=== PATIENT | male | born 1960 | race American Indian/Alaskan Native ===

== ENCOUNTER 2018-01-05 06:02 | Emergency (ER) | payer BC ==
[2018-01-05 07:49] LABS: Basophils # (Auto) 0.1 K/mm3 (0.0-0.1); Basophils % (Auto) 0.5 % (0.0-1.8); Eosinophils % (Auto) 0.4 % (0.0-4.3); Hematocrit 41.3 % (35.5-45.6); Hemoglobin 13.5 gm/dl (11.8-15.2); Lymphocytes # (Auto) 1.6 K/mm3 (1.2-5.4); Lymphocytes % (Auto) 15.1 % (13.4-35.0); Mean Corpuscular HGB Conc 33 % (32-34); Mean Corpuscular Hemoglobin 29 pg (28-32); Mean Corpuscular Volume 88 fl (84-94); Monocytes # (Auto) 0.5 K/mm3 (0.0-0.8); Monocytes % (Auto) 4.9 % (0.0-7.3); Platelet Count 210 K/mm3 (140-440); Red Blood Count 4.69 M/mm3 (3.65-5.03)
--- NOTE | 2018-01-05 08:00 | XRay Report ---
FINAL REPORT EXAM: XR CHEST ROUTINE 2V HISTORY: Shortness of breath TECHNIQUE: PA and lateral chest radiographs PRIORS: 12/27/2017 FINDINGS: No mediastinal shift. Borderline cardiomegaly. No pneumothorax, effusion, or focal pulmonary opacity. No acute skeletal finding. IMPRESSION: Borderline cardiomegaly without acute pulmonary finding. Correlation with ejection fraction is requested.
[2018-01-05 08:09] LABS: BUN/Creatinine Ratio 13; Blood Urea Nitrogen 17 mg/dL (9-20); Calcium 9.6 mg/dL (8.4-10.2); Hemolysis Index 5
--- NOTE | 2018-01-05 08:40 | Emergency Department Report ---
HPI - General Chief Complaint: Dyspnea/Respdistress Time Seen by Provider: 01/05/18 08:03 - HPI HPI: 57-year-old male presents to the emergency department home with a complaint of some upper abdominal discomfort, some lower chest discomfort and some uncomfortable sensation while trying to lie flat last night. Patient does admit that he ate food late at night and laid down just afterwards. However the patient does have a history of CHF and was admitted to [facility] a week ago for it and says that he had some similar sensation during that time but felt better after he got Lasix. He was not discharged home on any diuretics. He also has a past medical history of hypertension and diabetes. His primary care physician is Dr. Bazan and his tricot knitter is Dr. Boudreaux. He had an echocardiogram on his last visit that showed an ejection fraction of 50-55%. 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 However the patient says that he is currently improved but everything has not yet resolved. ED Past Medical Hx - Past Medical History Hx Hypertension: Yes Hx Congestive Heart Failure: Yes Hx Diabetes: Yes Hx Asthma: No Hx COPD: No Hx HIV: No - Surgical History Past Surgical History?: No - Social History Smoking Status: Never Smoker Substance Use Type: None - Medications Home Medications: Home Medications Medication Instructions Recorded Confirmed Last Taken Type ALBUTEROL Inhaler [ProAir HFA 2 puff IH QID PRN #1 unit 12/28/17 Unknown Rx Inhaler] Amoxicillin/Potassium Clav 1 each PO BID #10 tablet 12/28/17 Unknown Rx [Augmentin 875-125 Tablet] Losartan [Cozaar] 100 mg PO QDAY #30 tablet 12/28/17 Unknown Rx Metoprolol [Lopressor] 100 mg PO BID #60 tablet 12/28/17 Unknown Rx glipiZIDE XL [Glucotrol Xl] 5 mg PO QAM #30 tab.er.24 12/28/17 Unknown Rx guaiFENesin [Robitussin] 200 mg PO Q4H PRN #30 oral.liqd 12/28/17 Unknown Rx Furosemide [Lasix] 20 mg PO QDAY #5 tablet 01/05/18 Unknown Rx ED Review of Systems ROS: Stated complaint: ABD PAIN Other details as noted in HPI Comment: All other systems reviewed and negative Constitutional: denies: chills, fever Eyes: denies: eye pain, eye discharge, vision change ENT: denies: ear pain, throat pain Respiratory: orthopnea. denies: cough, wheezing Cardiovascular: denies: palpitations, edema Gastrointestinal: abdominal pain. denies: nausea, diarrhea Genitourinary: denies: urgency, dysuria Musculoskeletal: denies: back pain, joint swelling, arthralgia Skin: denies: rash, lesions Neurological: denies: headache, weakness, paresthesias Physical Exam - Physical Exam Vital Signs: Vital Signs 01/05/18 01/05/18 07:24 08:10 Temperature 98.0 F Pulse Rate 61 Respiratory 16 18 Rate Blood Pressure 151/98 O2 Sat by Pulse 98 Oximetry ED Course Vital Signs 01/05/18 01/05/18 07:24 08:10 Temperature 98.0 F Pulse Rate 61 Respiratory 16 18 Rate Blood Pressure 151/98 O2 Sat by Pulse 98 Oximetry ED Medical Decision Making - Lab Data Result diagrams: 01/05/18 07:32 01/05/18 07:32 - EKG Data -: EKG Interpreted by Md EKG shows normal: sinus rhythm, axis, intervals, QRS complexes, ST-T waves ( there is some mild early repolarization to the anterior leads) Rate: normal - EKG Data When compared to previous EKG there are: previous EKG unavailable Interpretation: normal EKG Critical care attestation.: If time is entered above; I have spent that time in minutes in the direct care of this critically ill patient, excluding procedure time. ED Disposition Clinical Impression: History of CHF (congestive heart failure) Hypertension Qualifiers: Hypertension type: essential hypertension Qualified Code(s): I10 - Essential ( primary) hypertension GERD (gastroesophageal reflux disease) Qualifiers: Esophagitis presence: esophagitis presence not specified Qualified Code(s): K21.9 - Gastro-esophageal reflux disease without esophagitis Disposition: - TO HOME OR SELFCARE Is pt being admited?: No Condition: Stable Instructions: Hypertension (ED), Gastroesophageal Reflux Disease (ED), Heart Failure (ED) Additional Instructions: Please follow-up with your primary care physician in the next few days. Return to the emergency Department with any worsening of your symptoms or any acute distress. Try not to lay down immediately after eating. I recommend staying away from foods that are ascitic, caffeinated, tomato-based. Take your acid reflux medication as needed. Stable from foods that are high in salt and caffeinated products to help with your blood pressure as well. Keep a blood pressure log. Prescriptions: Furosemide [Lasix] 20 mg PO QDAY #5 tablet Referrals: MARLON BAZAN MD [Staff Physician] - 2-3 Days Time of Disposition: 10:17
[2018-01-05 08:47] LABS: Alanine Aminotransferase 27 units/L (7-56); Albumin 3.7 g/dL (3.9-5)
--- NOTE | 2018-01-05 08:54 | XRay Report ---
FINAL REPORT EXAM: XR ABDOMEN 2V HISTORY: Abd pain TECHNIQUE: upright and supine views of the abdomen and pelvis PRIORS: None. FINDINGS: No pneumoperitoneum. Bowel gas pattern is nonobstructive. No pathologic calcification or fracture. IMPRESSION: No acute finding. Consider CT for more sensitive and specific evaluation of abdominal pain as warranted.
[2018-01-05] MEDS ORDERED: LIDOCAINE VISCOUS 2% PO ONE (08:58)
[2018-01-05] MEDS ORDERED: ALUM-MAG HYDROX-SIMETH 200-200-20MG/5ML PO ONE (08:58)
[2018-01-05] MEDS ORDERED: LASIX IV ONE (08:58)
[2018-01-05 09:04] LABS: Bilirubin,Direct < 0.2 mg/dL (0-0.2)
[2018-01-05 10:52] VITALS: BP 160/103
== END 2018-01-05 10:51 | disposition home or self-care (01) ==
LOC: ED 06:02
DX: K21.9 Gastro-esophageal reflux disease without esophagitis (principal); I10 Essential (primary) hypertension; I50.9 Heart failure, unspecified; E11.9 Type 2 diabetes mellitus without complications
CPT/HCPCS: 36415; 71046; 74019; 80048; 80074; 83690; 83880; 84484; 85025; 93005; 93010; 96374; 99284; J1940

== ENCOUNTER 2018-01-07 18:48 | Emergency (ER) | payer BC ==
[2018-01-07 18:57] VITALS: BP 160/96
[2018-01-07] MEDS ORDERED: NACL 0.9% 1000 ML 1,000 ML IV ONE (18:57)
[2018-01-07 19:49] LABS: Basophils # (Auto) 0.1 K/mm3 (0.0-0.1); Basophils % (Auto) 0.7 % (0.0-1.8); Eosinophils % (Auto) 0.3 % (0.0-4.3); Hemoglobin 13.9 gm/dl (11.8-15.2); Lymphocytes # (Auto) 2.2 K/mm3 (1.2-5.4); Lymphocytes % (Auto) 21.8 % (13.4-35.0); Mean Corpuscular HGB Conc 34 % (32-34); Mean Corpuscular Hemoglobin 30 pg (28-32); Mean Corpuscular Volume 87 fl (84-94); Monocytes # (Auto) 0.6 K/mm3 (0.0-0.8); Monocytes % (Auto) 6.4 % (0.0-7.3); Platelet Count 223 K/mm3 (140-440); Red Blood Count 4.71 M/mm3 (3.65-5.03); Red Cell Distribution Width 14.9 % (13.2-15.2)
[2018-01-07 20:02] LABS: Albumin 3.9 g/dL (3.9-5); Calcium 9.3 mg/dL (8.4-10.2)
--- NOTE | 2018-01-07 20:03 | Emergency Department Report ---
HPI - General Chief Complaint: Abdominal Pain Time Seen by Provider: 01/07/18 19:41 - HPI HPI: 57-year-old male presents to the emergency department with complaint of some abdominal pain that started earlier this afternoon has improved without any intervention. He also complains of some intermittent shortness of breath. Patient was seen here for the same symptoms 3 days ago, Sunday. He has a past medical history of hypertension, CHF, diabetes. Primary care physician is Dr. Perkins and his business support coordinator is Dr. Boudreaux. He saw Dr. Boudreaux today regarding the shortness of breath and was told that it does not appear to be any exacerbation of his CHF and they discussed dietary changes. He denies any nausea, vomiting, dysuria, constipation or diarrhea. No recent travel or sick contacts at home. ED Past Medical Hx - Past Medical History Hx Hypertension: Yes Hx Congestive Heart Failure: Yes Hx Diabetes: Yes Hx Asthma: No Hx COPD: No Hx HIV: No - Surgical History Past Surgical History?: No - Social History Smoking Status: Never Smoker Substance Use Type: None - Medications Home Medications: Home Medications Medication Instructions Recorded Confirmed Last Taken Type ALBUTEROL Inhaler [ProAir HFA 2 puff IH QID PRN #1 unit 12/28/17 Unknown Rx Inhaler] Amoxicillin/Potassium Clav 1 each PO BID #10 tablet 12/28/17 Unknown Rx [Augmentin 875-125 Tablet] Losartan [Cozaar] 100 mg PO QDAY #30 tablet 12/28/17 Unknown Rx Metoprolol [Lopressor] 100 mg PO BID #60 tablet 12/28/17 Unknown Rx glipiZIDE XL [Glucotrol Xl] 5 mg PO QAM #30 tab.er.24 12/28/17 Unknown Rx guaiFENesin [Robitussin] 200 mg PO Q4H PRN #30 oral.liqd 12/28/17 Unknown Rx Furosemide [Lasix] 20 mg PO QDAY #5 tablet 01/05/18 Unknown Rx ALBUTEROL Inhaler [ProAir HFA 2 puff IH QID PRN #1 inhalation 01/07/18 Unknown Rx Inhaler] ED Review of Systems ROS: Stated complaint: ABD PAIN/CRAMPS Other details as noted in HPI Comment: All other systems reviewed and negative Constitutional: denies: chills, fever Eyes: denies: eye pain, eye discharge, vision change ENT: denies: ear pain, throat pain Respiratory: shortness of breath (intermittent). denies: cough Cardiovascular: denies: chest pain, palpitations Gastrointestinal: abdominal pain. denies: vomiting Genitourinary: denies: urgency, dysuria Musculoskeletal: denies: back pain, joint swelling, arthralgia Skin: denies: rash, lesions Neurological: denies: headache, weakness, paresthesias Physical Exam - Physical Exam Vital Signs: Vital Signs 01/07/18 01/07/18 18:52 19:42 Temperature 98 F Pulse Rate 57 L Respiratory 17 18 Rate Blood Pressure 160/96 O2 Sat by Pulse 98 Oximetry Physical Exam: GENERAL: The patient is well-developed well-nourished. HENT: Normocephalic. Atraumatic. Patient has moist mucous membranes. EYES: Extraocular motions are intact. Pupils equal reactive to light bilaterally. NECK: Supple. Trachea is midline. CHEST/LUNGS: Clear to auscultation. There is no respiratory distress noted. HEART/CARDIOVASCULAR: Regular. There is no tachycardia. There is no murmur. ABDOMEN: Abdomen is soft, nontender. Patient has normal bowel sounds. SKIN: Skin is warm and dry. NEURO: The patient is awake, alert, and oriented. The patient is cooperative. The patient has no focal neurologic deficits. The patient has normal speech. MUSCULOSKELETAL: There is no tenderness or deformity. There is no limitation range of motion. There is no evidence of acute injury. ED Course Vital Signs 01/07/18 01/07/18 18:52 19:42 Temperature 98 F Pulse Rate 57 L Respiratory 17 18 Rate Blood Pressure 160/96 O2 Sat by Pulse 98 Oximetry - Pulse Oximetry Interpretation Digit-Finger Initial Pulse Oximetry Readin O2 Sat by Pulse Oximetry: 98 Actions Taken: none Additional Comments: normal ED Medical Decision Making - Lab Data Result diagrams: 01/07/18 19:35 01/07/18 19:35 - Radiology Data Radiology results: report reviewed PROCEDURE: CT ABDOMEN PELVIS WO CON TECHNIQUE: Computerized axial tomography of the abdomen and pelvis was performed without intravenous contrast. HISTORY: abdominal pain COMPARISON: No prior studies are available for comparison. FINDINGS: Visualized lower thorax: No significant abnormality. Liver: Normal size and attenuation. Spleen: Normal size and attenuation. Gallbladder and biliary system: Normal. Pancreas: Normal. Adrenals: Normal. Kidneys: Normal. No stones or hydronephrosis. GI tract: Normal. No dilated loops of large or small bowel. Appendix is normal Lymph nodes and mesentery: Normal. Vasculature: Normal. Bladder: Normal. Reproductive organs: Calcifications of the prostate.. Peritoneum: No free fluid. Musculoskeletal structures: No significant abnormality. Other: Periumbilical hernia containing fat. IMPRESSION: Normal examination of the abdomen and pelvis. Transcribed By: ASIA Dictated By: TANYA MAYA MD Electronically Authenticated By: TANYA MAYA MD Signed Date/Time: 01/07/182041 - Medical Decision Making Patient presented with some abdominal pain that occurred earlier in the afternoon but has since resolved. This happened to him this past weekend as well. There is also some level of some intermittent shortness of breath that seems to worsen with the patient is out and the humidity. This is also resolved prior to presentation. Labs and an unremarkable good leukocytosis, normal belly labs. i also got a bnp to assess his chf history and has come down from 750 to about 250 over the past 2 or 3 days. since the patient has returned a few times for this abdominal pain, a ct of the abdomen and pelvis was done that was read as a normal examination. vital signs stable throughout his ed course. the patient has been given referrals for gastroenterology and encouraged to see his primary care physician. he has been instructed to return to the emergency department with any worsening of his symptoms or any acute distress. - Differential Diagnosis pancreatitis, cholelithiasis, gastritis, GERD Critical Care Time: No Critical care attestation.: If time is entered above; I have spent that time in minutes in the direct care of this critically ill patient, excluding procedure time. ED Disposition Clinical Impression: Abdominal pain Qualifiers: Abdominal location: generalized Qualified Code(s): R10.84 - Generalized abdominal pain Hypertension Qualifiers: Hypertension type: essential hypertension Qualified Code(s): I10 - Essential ( primary) hypertension Disposition: TO HOME OR SELFCARE Is pt being admited?: No Condition: Stable Instructions: Abdominal Pain (ED), Hypertension (ED) Additional Instructions: Please follow-up with your primary care physician in the next few days. Return to the emergency Department with any worsening of your symptoms or any acute distress. I have given you a referral for a local window repairer, Dr. Hugo , in follow-up regarding your abdominal pain issues. Prescriptions: ALBUTEROL Inhaler [ProAir HFA Inhaler] 2 puff IH QID PRN #1 inhalation PRN Reason: Shortness Of Breath Referrals: RANDA HUGO MD [Staff Physician] - [facility],MD [Primary Care Provider] - 3-5 Days
--- NOTE | 2018-01-07 20:47 | Cat Scan Report ---
FINAL REPORT PROCEDURE: CT ABDOMEN PELVIS WO CON TECHNIQUE: Computerized axial tomography of the abdomen and pelvis was performed without intravenous contrast. HISTORY: abdominal pain COMPARISON: No prior studies are available for comparison. FINDINGS: Visualized lower thorax: No significant abnormality. Liver: Normal size and attenuation. Spleen: Normal size and attenuation. Gallbladder and biliary system: Normal. Pancreas: Normal. Adrenals: Normal. Kidneys: Normal. No stones or hydronephrosis. GI tract: Normal. No dilated loops of large or small bowel. Appendix is normal Lymph nodes and mesentery: Normal. Vasculature: Normal. Bladder: Normal. Reproductive organs: Calcifications of the prostate.. Peritoneum: No free fluid. Musculoskeletal structures: No significant abnormality. Other: Periumbilical hernia containing fat. IMPRESSION: Normal examination of the abdomen and pelvis.
[2018-01-07 20:51] LABS: Bilirubin,Urine NEG (Negative); Blood,Urine NEG (Negative); Color,Urine Yellow (Yellow); Mucus,Urine FEW /HPF; Protein,Urine <15 mg/dL mg/dL (Negative); Urobilinogen,Urine < 2.0 mg/dL (<2.0)
== END 2018-01-07 21:31 | disposition home or self-care (01) ==
LOC: ED 18:48
DX: R10.9 Unspecified abdominal pain (principal); R06.02 Shortness of breath; I11.0 Hypertensive heart disease with heart failure; I50.9 Heart failure, unspecified; E11.9 Type 2 diabetes mellitus without complications
CPT/HCPCS: 36415; 74176; 80053; 81001; 83690; 83880; 85025; 99284

== ENCOUNTER 2019-10-22 22:03 | Emergency (ER) | payer SELFPAY ==
[2019-10-22 22:52] LABS: Basophils # (Auto) 0.1 K/mm3 (0.0-0.1); Basophils % (Auto) 1.5 % (0.0-1.8); Eosinophils # (Auto) 0.1 K/mm3 (0.0-0.4); Eosinophils % (Auto) 0.9 % (0.0-4.3); Hematocrit 40.3 % (35.5-45.6); Hemoglobin 13.2 gm/dl (11.8-15.2); Lymphocytes # (Auto) 2.2 K/mm3 (1.2-5.4); Lymphocytes % (Auto) 25.6 % (13.4-35.0); Mean Corpuscular HGB Conc 33 % (32-34); Mean Corpuscular Volume 88 fl (84-94); Monocytes # (Auto) 0.6 K/mm3 (0.0-0.8); Platelet Count 176 K/mm3 (140-440); Red Blood Count 4.59 M/mm3 (3.65-5.03); Red Cell Distribution Width 15.3 % (13.2-15.2)
[2019-10-22 23:12] LABS: Albumin 3.9 g/dL (3.9-5); Calcium 9.3 mg/dL (8.4-10.2)
--- NOTE | 2019-10-22 23:25 | Emergency Department Report ---
ED Abdominal Pain HPI - General Chief Complaint: Abdominal Pain Stated Complaint: STOMACH PAIN Time Seen by Provider: 10/22/19 22:56 Source: patient, old records reviewed Mode of arrival: Ambulatory Limitations: No Limitations - History of Present Illness Initial Comments: 59-year-old -[place] male with a past medical history of diabetes and hypertension presents to the emergency room for intermittent abdominal pain x1 week. Patient reports that the pain is at the upper epigastric with some discomfort. Patient does not say is dull achy sharp or stabbing. Patient states he has a little shortness of breath. Patient states that nothing makes it worse and what makes it better is when he get in a certain position. Patient denies any nausea vomiting or diarrhea. Patient reports he took a Pepcid today without any change. Patient did not follow-up with his primary care provider. Patient denies any fever chills no chest pain no diaphoresis no urinary urgency or frequency he takes metformin and losartan. Has no known drug allergies. MD Complaint: abdominal pain Onset/Timin -: week(s) Location: epigastric Radiation: none Migration to: no migration Severity scale (0 -10): 3 Quality: other (Discomfort) Improves With: nothing Worsens With: other (Certain position) Associated Symptoms: denies other symptoms - Related Data Previous Rx's Medication Instructions Recorded Last Taken Type Albuterol INH(or & Nicu Only) 2 puff IH QID PRN #1 unit 12/28/17 Unknown Rx [ProAir HFA Inhaler] Amoxicillin/Potassium Clav 1 each PO BID #10 tablet 12/28/17 Unknown Rx [Augmentin 875-125 Tablet] Losartan [Cozaar] 100 mg PO QDAY #30 tablet 12/28/17 Unknown Rx Metoprolol [Lopressor] 100 mg PO BID #60 tablet 12/28/17 Unknown Rx glipiZIDE XL [Glucotrol Xl] 5 mg PO QAM #30 tab.er.24 12/28/17 Unknown Rx guaiFENesin [Robitussin] 200 mg PO Q4H PRN #30 oral.liqd 12/28/17 Unknown Rx Furosemide [Lasix] 20 mg PO QDAY #5 tablet 01/05/18 Unknown Rx Albuterol INH(or & Nicu Only) 2 puff IH QID PRN #1 inhalation 01/07/18 Unknown Rx [ProAir HFA Inhaler] Omeprazole 20 mg PO QDAY #30 capsule. 10/22/19 Unknown Rx Allergies Allergy/AdvReac Type Severity Reaction Status Date / Time No Known Allergies Allergy Verified 10/22/19 22:08 ED Review of Systems ROS: Stated complaint: STOMACH PAIN Other details as noted in HPI Comment: All other systems reviewed and negative ED Past Medical Hx - Past Medical History Hx Hypertension: Yes Hx Congestive Heart Failure: Yes Hx Diabetes: Yes Hx Asthma: No Hx COPD: No Hx HIV: No - Surgical History Past Surgical History?: No - Social History Smoking Status: Never Smoker Substance Use Type: None - Medications Home Medications: Home Medications Medication Instructions Recorded Confirmed Last Taken Type Albuterol INH(or & Nicu Only) 2 puff IH QID PRN #1 unit 12/28/17 Unknown Rx [ProAir HFA Inhaler] Amoxicillin/Potassium Clav 1 each PO BID #10 tablet 12/28/17 Unknown Rx [Augmentin 875-125 Tablet] Losartan [Cozaar] 100 mg PO QDAY #30 tablet 12/28/17 Unknown Rx Metoprolol [Lopressor] 100 mg PO BID #60 tablet 12/28/17 Unknown Rx glipiZIDE XL [Glucotrol Xl] 5 mg PO QAM #30 tab.er.24 12/28/17 Unknown Rx guaiFENesin [Robitussin] 200 mg PO Q4H PRN #30 oral.liqd 12/28/17 Unknown Rx Furosemide [Lasix] 20 mg PO QDAY #5 tablet 01/05/18 Unknown Rx Albuterol INH(or & Nicu Only) 2 puff IH QID PRN #1 inhalation 01/07/18 Unknown Rx [ProAir HFA Inhaler] Omeprazole 20 mg PO QDAY #30 capsule. 10/22/19 Unknown Rx ED Physical Exam - General Limitations: No Limitations General appearance: alert, in no apparent distress - Head Head exam: Present: atraumatic, normocephalic - Eye Eye exam: Present: normal appearance - ENT ENT exam: Present: mucous membranes moist - Neck Neck exam: Present: normal inspection - Respiratory Respiratory exam: Present: normal lung sounds bilaterally. Absent: respiratory distress - Cardiovascular Cardiovascular Exam: Present: regular rate, normal rhythm. Absent: systolic murmur, diastolic murmur, rubs, gallop - GI/Abdominal GI/Abdominal exam: Present: soft, normal bowel sounds - Rectal Rectal exam: Present: deferred - Extremities Exam Extremities exam: Present: normal inspection - Back Exam Back exam: Present: normal inspection - Neurological Exam Neurological exam: Present: alert, oriented X3 - Psychiatric Psychiatric exam: Present: normal affect, normal mood - Skin Skin exam: Present: warm, dry, intact, normal color. Absent: rash ED Course Vital Signs 10/22/19 22:10 Temperature 98.0 F Pulse Rate 91 H Respiratory 18 Rate Blood Pressure 153/97 O2 Sat by Pulse 95 Oximetry ED Medical Decision Making - Lab Data Result diagrams: 10/22/19 22:32 10/22/19 22:32 Laboratory Tests 10/22/19 10/22/19 10/22/19 22:32 22:32 22:40 WBC 8.6 RBC 4.59 Hgb 13.2 Hct 40.3 MCV 88 MCH 29 MCHC 33 RDW 15.3 H Plt Count 176 Lymph % (Auto) 25.6 Rabun % (Auto) 7.0 Eos % (Auto) 0.9 Baso % (Auto) 1.5 Lymph # 2.2 Rabun # 0.6 Eos # 0.1 Baso # 0.1 Seg Neutrophils % 65.0 Seg Neutrophils # 5.6 Sodium 142 Potassium 4.0 Chloride 107.3 H Carbon Dioxide 25 Anion Gap 14 BUN 21 H Creatinine 1.6 H Estimated GFR 54 BUN/Creatinine Ratio 13 Glucose 129 H Calcium 9.3 Total Bilirubin 0.30 AST 32 ALT 30 Alkaline Phosphatase 74 Total Protein 7.3 Albumin 3.9 Albumin/Globulin Ratio 1.1 Lipase 26 - Medical Decision Making 59-year-old -[place] male with a past medical history of diabetes and hypertension presents to the emergency room for intermittent abdominal pain x1 week. Patient reports that the pain is at the upper epigastric with some discomfort. Patient does not say is dull achy sharp or stabbing. Patient states he has a little shortness of breath. Patient states that nothing makes it worse and what makes it better is when he get in a certain position. Patient denies any nausea vomiting or diarrhea. Patient reports he took a Pepcid today without any change. Patient did not follow-up with his primary care provider. Patient denies any fever chills no chest pain no diaphoresis no urinary urgency or frequency he takes metformin and losartan. Has no known drug allergies. Review of patient's medical records it is noted that patient was seen here January 07, [address] scan which showed a isrrael-umbilicus hernia containing fat. Also review of chart shows the patient has a history of A. fib that is currently not on Eliquis or anti-anticoagulation medication. Shows CHF which patient did not sure with me. EKG shows patient has active A. fib. Review chart with Dr. Lara Critical care attestation.: If time is entered above; I have spent that time in minutes in the direct care of this critically ill patient, excluding procedure time. ED Disposition Clinical Impression: Chronic abdominal pain, H/O atrial flutter Diabetes mellitus Qualifiers: Diabetes mellitus type: type 2 Diabetes mellitus watermelon inspector insulin use: without watermelon inspector use Diabetes mellitus complication status: without complication Qualified Code(s): E11.9 - Type 2 diabetes mellitus without complications Disposition: DC-01 TO HOME OR SELFCARE Is pt being admited?: No Does the pt Need Aspirin: No Condition: Stable Instructions: Diabetes Mellitus Type 2 in Adults (ED) Additional Instructions: Please take medications as prescribed. Follow-up with a primary care provider and a sales project administrator I have listed their information below Prescriptions: Omeprazole 20 mg PO QDAY #30 capsule. Referrals: PROSPER STRAUSS MD [Primary Care Provider] - 3-5 Days ANIYA BELL MD [Staff Physician] - 3-5 Days [facility] [Provider Group] - 3-5 Days
[2019-10-22 23:43] LABS: Bilirubin,Urine NEG (Negative); Blood,Urine NEG (Negative); Color,Urine Yellow (Yellow); Mucus,Urine FEW /HPF; Protein,Urine <15 mg/dL mg/dL (Negative)
[2019-10-23 00:28] VITALS: BP 151/113
== END 2019-10-23 00:03 | disposition home or self-care (01) ==
LOC: ED 22:03
DX: R10.13 Epigastric pain (principal); I48.92 Unspecified atrial flutter; E11.9 Type 2 diabetes mellitus without complications; I11.0 Hypertensive heart disease with heart failure; I50.9 Heart failure, unspecified; Z79.2 Long term (current) use of antibiotics; Z79.899 Other long term (current) drug therapy
CPT/HCPCS: 36415; 80053; 81001; 83690; 85025; 93005; 99283

== ENCOUNTER 2019-11-09 07:23 | Observation (INO) | payer SELFPAY ==
[2019-11-09] MEDS ORDERED: ASPIRIN 325 MG TAB PO ONE (07:46)
--- NOTE | 2019-11-09 08:24 | Emergency Department Report ---
ED General Adult HPI - General Chief complaint: Abdominal Pain Stated complaint: STOMACH PAIN Time Seen by Provider: 11/09/19 07:57 Source: patient Mode of arrival: Ambulatory Limitations: No Limitations - History of Present Illness Initial comments: This is a 59-year old pleasant gentleman who admits his complete noncompliance with medical treatment and follow-up. He does state that his balloon tester told him that his atrial fib flutter had resolved his last visit presumably in 2017 or 18 and that he did not need to return for a year. He states he lost his insurance. He is taking nothing for his chronic hypertension or diabetes. He states he was here for similar abdominal complaints a few weeks ago. Review of the previous records indicates that he is presented multiple times for "abdominal cramps" in the past. Apparently he was given omeprazole for this on his last visit. A CT of the patient's abdomen and pelvis in 2018 was interpreted as normal. He states the main reason why he came in for emergency evaluation is due to orthopnea. He states his stomach is large and pressing on his chest when he lays down flat and he gets short of breath. He admits that his abdominal discomfort is really quite chronic in nature. He does not know if his legs are swollen. He states that his abdomen was actually more swollen on his last visit here. Patient denies fever, chills, signs of GI bleeding, acute abdominal pain or vomiting. It does appear that his main reason for coming today is shortness of breath. Apparently on previous admission for atrial fibrillation the patient's Chads score was 1. He was not placed on anticoagulation. He has left echocardiogram on record shows severe dilatation of the left atrium. His LVEF was preserved at 50 to 55%. His last cardiology consultation is indicative of the following: - Patient Problems (1) (HFpEF) heart failure with preserved ejection fraction Current Visit: Yes Status: Acute (2) SOB (shortness of breath) Current Visit: Yes Status: Acute (3) Uncontrolled hypertension Current Visit: Yes Status: Chronic (4) CKD (chronic kidney disease) Current Visit: Yes Status: Chronic (5) Diabetes mellitus Current Visit: Yes Status: Chronic Qualifiers: Diabetes mellitus type: type 2 (6) NSVT (nonsustained ventricular tachycardia) Current Visit: Yes Status: Acute (7) H/O atrial flutter Current Visit: Yes Status: Chronic -: Gradual - Related Data Previous Rx's Medication Instructions Recorded Last Taken Type Albuterol INH(or & Nicu Only) 2 puff IH QID PRN #1 unit 12/28/17 Unknown Rx [ProAir HFA Inhaler] Amoxicillin/Potassium Clav 1 each PO BID #10 tablet 12/28/17 Unknown Rx [Augmentin 875-125 Tablet] Losartan [Cozaar] 100 mg PO QDAY #30 tablet 12/28/17 Unknown Rx Metoprolol [Lopressor] 100 mg PO BID #60 tablet 12/28/17 Unknown Rx glipiZIDE XL [Glucotrol Xl] 5 mg PO QAM #30 tab.er.24 12/28/17 Unknown Rx guaiFENesin [Robitussin] 200 mg PO Q4H PRN #30 oral.liqd 12/28/17 Unknown Rx Furosemide [Lasix] 20 mg PO QDAY #5 tablet 01/05/18 Unknown Rx Albuterol INH(or & Nicu Only) 2 puff IH QID PRN #1 inhalation 01/07/18 Unknown Rx [ProAir HFA Inhaler] Omeprazole 20 mg PO QDAY #30 capsule. 10/22/19 Unknown Rx Allergies Allergy/AdvReac Type Severity Reaction Status Date / Time No Known Allergies Allergy Verified 10/22/19 22:08 ED Review of Systems ROS: Stated complaint: STOMACH PAIN Other details as noted in HPI Constitutional: denies: chills, fever Eyes: denies: eye pain, vision change ENT: denies: ear pain, throat pain Respiratory: shortness of breath. denies: cough Cardiovascular: denies: chest pain, palpitations Endocrine: no symptoms reported Gastrointestinal: abdominal pain. denies: nausea, vomiting, diarrhea Genitourinary: denies: urgency, dysuria Musculoskeletal: denies: back pain, arthralgia Skin: denies: rash, lesions Neurological: denies: headache, weakness Psychiatric: denies: anxiety, depression Hematological/Lymphatic: denies: easy bleeding, easy bruising ED Past Medical Hx - Past Medical History Hx Hypertension: Yes Hx Congestive Heart Failure: Yes Hx Diabetes: Yes Hx Asthma: No Hx COPD: No Hx HIV: No - Social History Smoking Status: Never Smoker Substance Use Type: None - Medications Home Medications: Home Medications Medication Instructions Recorded Confirmed Last Taken Type Albuterol INH(or & Nicu Only) 2 puff IH QID PRN #1 unit 12/28/17 Unknown Rx [ProAir HFA Inhaler] Amoxicillin/Potassium Clav 1 each PO BID #10 tablet 12/28/17 Unknown Rx [Augmentin 875-125 Tablet] Losartan [Cozaar] 100 mg PO QDAY #30 tablet 12/28/17 Unknown Rx Metoprolol [Lopressor] 100 mg PO BID #60 tablet 12/28/17 Unknown Rx glipiZIDE XL [Glucotrol Xl] 5 mg PO QAM #30 tab.er.24 12/28/17 Unknown Rx guaiFENesin [Robitussin] 200 mg PO Q4H PRN #30 oral.liqd 12/28/17 Unknown Rx Furosemide [Lasix] 20 mg PO QDAY #5 tablet 01/05/18 Unknown Rx Albuterol INH(or & Nicu Only) 2 puff IH QID PRN #1 inhalation 01/07/18 Unknown Rx [ProAir HFA Inhaler] Omeprazole 20 mg PO QDAY #30 capsule. 10/22/19 Unknown Rx ED Physical Exam - General Limitations: No Limitations General appearance: alert, in no apparent distress - Head Head exam: Present: atraumatic, normocephalic - Eye Eye exam: Present: normal appearance. Absent: scleral icterus - ENT ENT exam: Present: mucous membranes moist - Neck Neck exam: Present: normal inspection. Absent: tenderness, meningismus - Respiratory Respiratory exam: Present: normal lung sounds bilaterally. Absent: respiratory distress - Cardiovascular Cardiovascular Exam: Present: normal rhythm, irregular rhythm, systolic murmur (High-pitched early systolic). Absent: diastolic murmur, rubs, gallop - GI/Abdominal GI/Abdominal exam: Present: soft, distended (Somewhat but no tense ascites), normal bowel sounds. Absent: tenderness, guarding, rebound, rigid - Rectal Rectal exam: Present: deferred - Extremities Exam Extremities exam: Present: other (Bilateral 1+ pretibial edema). Absent: calf tenderness - Back Exam Back exam: Present: normal inspection - Neurological Exam Neurological exam: Present: alert, oriented X3, CN II-XII intact. Absent: motor sensory deficit - Psychiatric Psychiatric exam: Present: normal affect, normal mood - Skin Skin exam: Present: warm, dry, intact, normal color. Absent: rash ED Course Vital Signs 11/09/19 11/09/19 11/09/19 07:42 08:22 08:27 Temperature 97.8 F Pulse Rate 87 96 H Respiratory 18 20 18 Rate Blood Pressure 168/108 O2 Sat by Pulse 96 96 Oximetry ED Medical Decision Making - Lab Data Result diagrams: 11/09/19 08:23 11/09/19 08:23 Laboratory Results - last 24 hr 11/09/19 11/09/19 11/09/19 07:59 08:23 08:23 WBC 9.1 RBC 4.50 Hgb 12.9 Hct 39.6 MCV 88 MCH 29 MCHC 33 RDW 15.5 H Plt Count 197 Lymph % (Auto) 16.9 [place] % (Auto) 6.6 Eos % (Auto) 0.5 Baso % (Auto) 0.4 Lymph # 1.5 [place] # 0.6 Eos # 0.0 Baso # 0.0 Seg Neutrophils % 75.6 H Seg Neutrophils # 6.9 PT INR APTT VBG pH Sodium 141 Potassium 4.3 Chloride 107.7 H Carbon Dioxide 23 Anion Gap 15 BUN 14 Creatinine 1.4 Estimated GFR > 60 BUN/Creatinine Ratio 10 Glucose 128 H Ketones Quantitative Calcium 9.2 Magnesium Total Bilirubin Direct Bilirubin Indirect Bilirubin AST ALT Alkaline Phosphatase Total Creatine Kinase CK-MB (CK-2) CK-MB (CK-2) Rel Index Troponin T < 0.010 NT-Pro-B Natriuret Pep Total Protein Albumin Albumin/Globulin Ratio Urine Color Yellow Urine Turbidity Clear Urine pH 6.0 Ur Specific [place] 1.015 Urine Protein <15 mg/dl Urine Glucose (UA) Neg Urine Ketones Neg Urine Blood Neg Urine Nitrite Neg Urine Bilirubin Neg Urine Urobilinogen < 2.0 Ur Leukocyte Esterase Tr Urine WBC (Auto) 2.0 Urine RBC (Auto) 1.0 U Epithel Cells (Auto) 1.0 11/09/19 11/09/19 11/09/19 08:23 08:23 08:23 WBC RBC Hgb Hct MCV MCH MCHC RDW Plt Count Lymph % (Auto) [place] % (Auto) Eos % (Auto) Baso % (Auto) Lymph # [place] # Eos # Baso # Seg Neutrophils % Seg Neutrophils # PT 14.3 INR 1.10 APTT 32.4 VBG pH Sodium Potassium Chloride Carbon Dioxide Anion Gap BUN Creatinine Estimated GFR BUN/Creatinine Ratio Glucose Ketones Quantitative Calcium Magnesium 2.30 Total Bilirubin 0.70 Direct Bilirubin < 0.2 Indirect Bilirubin 0.5 AST 19 ALT 27 Alkaline Phosphatase 70 Total Creatine Kinase 344 H CK-MB (CK-2) 2.9 CK-MB (CK-2) Rel Index 0.8 Troponin T NT-Pro-B Natriuret Pep 1183 H Total Protein 6.7 Albumin 4.1 Albumin/Globulin Ratio 1.6 Urine Color Urine Turbidity Urine pH Ur Specific [place] Urine Protein Urine Glucose (UA) Urine Ketones Urine Blood Urine Nitrite Urine Bilirubin Urine Urobilinogen Ur Leukocyte Esterase Urine WBC (Auto) Urine RBC (Auto) U Epithel Cells (Auto) 11/09/19 11/09/19 08:23 08:23 WBC RBC Hgb Hct MCV MCH MCHC RDW Plt Count Lymph % (Auto) [place] % (Auto) Eos % (Auto) Baso % (Auto) Lymph # [place] # Eos # Baso # Seg Neutrophils % Seg Neutrophils # PT INR APTT VBG pH 7.385 Sodium Potassium Chloride Carbon Dioxide Anion Gap BUN Creatinine Estimated GFR BUN/Creatinine Ratio Glucose Ketones Quantitative Negative Calcium Magnesium Total Bilirubin Direct Bilirubin Indirect Bilirubin AST ALT Alkaline Phosphatase Total Creatine Kinase CK-MB (CK-2) CK-MB (CK-2) Rel Index Troponin T NT-Pro-B Natriuret Pep Total Protein Albumin Albumin/Globulin Ratio Urine Color Urine Turbidity Urine pH Ur Specific [place] Urine Protein Urine Glucose (UA) Urine Ketones Urine Blood Urine Nitrite Urine Bilirubin Urine Urobilinogen Ur Leukocyte Esterase Urine WBC (Auto) Urine RBC (Auto) U Epithel Cells (Auto) - EKG Data Rate: normal - EKG Data Interpretation: LVH (Suggestive in some leads), other (Atrial fibrillation with a controlled rate of approximately 85) - Radiology Data Radiology results: report reviewed, image reviewed LUNGS / PLEURA: Mild prominence of upper lobe vascularity may indicate mild congestion. No definite pleural effusions are seen. Mild increased density is seen in lateral projection the lower posterior chest which is difficult to isolate well on the PA view though possibly is in the left lower lobe. This may just be atelectatic but early infiltrate is possible and out suggest follow-up clinical correlation. No pneumothorax. ADDITIONAL FINDINGS: No significant additional findings. IMPRESSION: Question of basilar infiltrate as above. Mild congestion. Critical care attestation.: If time is entered above; I have spent that time in minutes in the direct care of this critically ill patient, excluding procedure time. ED Disposition Clinical Impression: Congestive heart failure Qualifiers: Heart failure type: unspecified Heart failure chronicity: acute Qualified Code(s): I50.9 - Heart failure, unspecified Atrial fibrillation Qualifiers: Atrial fibrillation type: paroxysmal Qualified Code(s): I48.0 - Paroxysmal atrial fibrillation Disposition: OP ADMIT IP TO THIS HOSP Is pt being admited?: Yes Does the pt Need Aspirin: Yes Condition: Stable Referrals: PRIMARY CARE, [Primary Care Provider] - 3-5 Days Time of Disposition: 10:05
[2019-11-09 08:29] LABS: Bilirubin,Urine NEG (Negative); Blood,Urine NEG (Negative); Color,Urine Yellow (Yellow); Protein,Urine <15 mg/dL mg/dL (Negative); Urobilinogen,Urine < 2.0 mg/dL (<2.0)
--- NOTE | 2019-11-09 08:39 | XRay Report ---
CHEST 2 VIEWS 0806 INDICATION / CLINICAL INFORMATION: Chest Pain COMPARISON: 01/05/2018 FINDINGS: SUPPORT DEVICES: None. HEART / MEDIASTINUM: Moderate cardiomegaly LUNGS / PLEURA: Mild prominence of upper lobe vascularity may indicate mild congestion. No definite p leural effusions are seen. Mild increased density is seen in lateral projection the lower posterior c hest which is difficult to isolate well on the PA view though possibly is in the left lower lobe. Thi s may just be atelectatic but early infiltrate is possible and out suggest follow-up clinical correla tion. No pneumothorax. ADDITIONAL FINDINGS: No significant additional findings. IMPRESSION: Question of basilar infiltrate as above. Mild congestion. Signer Name: Ramone Gong MD Signed: 11/09/2019 8:35 AM Workstation Name: [id number]
[2019-11-09 08:57] LABS: BUN/Creatinine Ratio 10; Blood Urea Nitrogen 14 mg/dL (9-20); Calcium 9.2 mg/dL (8.4-10.2); Hemolysis Index 8
[2019-11-09 08:59] LABS: Creatine Kinase MB 2.9 ng/mL (0.0-4.0)
[2019-11-09 09:01] LABS: Alanine Aminotransferase 27 units/L (7-56); Albumin 4.1 g/dL (3.9-5)
[2019-11-09 09:03] LABS: Bilirubin,Direct < 0.2 mg/dL (0-0.2)
[2019-11-09 09:08] LABS: Basophils % (Auto) 0.4 % (0.0-1.8); Eosinophils % (Auto) 0.5 % (0.0-4.3); Hematocrit 39.6 % (35.5-45.6); Hemoglobin 12.9 gm/dl (11.8-15.2); Lymphocytes # (Auto) 1.5 K/mm3 (1.2-5.4); Lymphocytes % (Auto) 16.9 % (13.4-35.0); Mean Corpuscular HGB Conc 33 % (32-34); Mean Corpuscular Volume 88 fl (84-94); Monocytes # (Auto) 0.6 K/mm3 (0.0-0.8); Monocytes % (Auto) 6.6 % (0.0-7.3); Platelet Count 197 K/mm3 (140-440); Red Cell Distribution Width 15.5 % (13.2-15.2)
[2019-11-09 09:29] LABS: INR 1.1 (0.87-1.13)
[2019-11-09 09:30] LABS: Partial Thromboplastin Time 32.4 Sec. (24.2-36.6)
[2019-11-09] MEDS ORDERED: FUROSEMIDE 40 MG/4 ML INJ IV ONE (10:03)
--- NOTE | 2019-11-09 11:02 | History and Physical Report ---
History of Present Illness Date of examination: 11/09/19 Date of admission: 11/09/19 10:17 Chief complaint: Chest pain History of present illness: Patient is a 59-year-old male with past medical history of hypertension, NIDDM, p. Afib not on Eliquis, GERD and CHF (01/16/17 2D ECHO reported est EF 50-55%, mild concentric LVH, moderate MR, mild TR, normal diastolic filling) recurrent abdominal pain last seen here a few weeks ago for abdominal pain at that time discharged to follow-up with primary care physician which he unfortunately did not. He presents today with abdominal pain which is similar to the one from last 2 weeks and also intermittent cramps with some orthopnea. At first he stated that he feels his stomach is large and presses on his chest when he tries to lay down flat and he gets short of breath. 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 He does have severe left atrium dilatation noted on echocardiogram with a preserved EF of 50 to 55%. He denies any nausea vomiting or diarrhea denies any fever or chills or GI bleed at this time. 2v CXR reported as normal normal d-dimer, normal pro-bnp and normal troponin T EKG: abnormal, sr with PACs, st elevation v2-v5, early repolarization suspected ( have asked for RN for prior EKGs to be placed in the chart) -COOK, with WBC 13.9, most likely Acute Bronchitis with SIRS: treat with abx, get blood cultures, nebs -Accelerated hypertension with urgency: restart Losartan, educational guidance counselor on compliance, cardiac diet -Abnormal EKG: consulted Cardiology -Acute on chronic HFpEF, appears stable -NSVT, 4 short beat run, asymptomatic evaluated by Cardiology, increase lopressor -P. Atrial fibrillation-->Lone atrial fibrillation, no systemic anticoagulation needed per Cardiology -NIDDM: add ssi, ada, a1c 6.8, educational guidance counselor on compliance -CKD 3 -DVT prophylaxis: Eliquis Past History Past Medical History: atrial fib, diabetes, hypertension Past Surgical History: No surgical history Social history: no significant social history Family history: no significant family history Medications and Allergies Allergies Allergy/AdvReac Type Severity Reaction Status Date / Time No Known Allergies Allergy Verified 10/22/19 22:08 Home Medications Medication Instructions Recorded Confirmed Last Taken Type Losartan [Cozaar] 100 mg PO QDAY #30 tablet 12/28/17 11/09/19 Unknown Rx Metoprolol [Lopressor] 100 mg PO BID #60 tablet 12/28/17 11/09/19 Unknown Rx glipiZIDE XL [Glucotrol Xl] 5 mg PO QAM #30 tab.er.24 12/28/17 11/09/19 Unknown Rx Furosemide [Lasix] 20 mg PO QDAY #5 tablet 01/05/18 11/09/19 Unknown Rx Omeprazole 20 mg PO QDAY #30 capsule. 10/22/19 11/09/19 Unknown Rx Review of Systems All systems: negative Cardiovascular: chest pain, orthopnea, palpitations, rapid/irregular heart beat Respiratory: shortness of breath Gastrointestinal: abdominal pain Exam - Physical Exam Narrative exam: VITAL SIGNS: Reviewed. GENERAL: The patient appears normally developed, Vital signs as documented. HEAD: No signs of head trauma. EYES: Pupils are equal. Extraocular motions intact. EARS: Hearing grossly intact. MOUTH: Oropharynx is normal. NECK: No adenopathy, no JVD. CHEST: Chest with clear breath sounds bilaterally. No wheezes, rales, or rhonchi. CARDIAC: Irregularly irregular rate and rhythm. S1 and S2, without murmurs, gallops, or rubs. VASCULAR: No Edema. Peripheral pulses normal and equal in all extremities. ABDOMEN: Soft, non tender and non distended. No rebound or guarding, and no masses palpated. Bowel Sounds normal. MUSCULOSKELETAL: Good range of motion of all major joints. Extremities without clubbing, cyanosis or edema. NEUROLOGIC EXAM: Alert and oriented x 3 No focal sensory or strength deficits. Speech normal. Follows commands. PSYCHIATRIC: Mood normal. SKIN: detial exam as documented in skin assessment - Constitutional Vitals: Temp Pulse Resp BP Pulse Ox 97.8 F 107 H 20 137/83 93 11/09/19 07:42 11/09/19 10:01 11/09/19 10:01 11/09/19 10:01 11/09/19 10:01 HEART Score - HEART Score History: Moderately suspicious EKG: Non-specific Age: 45-65 Risk factors: 1-2 risk factors Troponin: Troponin T < 0.010 ng/mL (0.00-0.029) 11/09/19 08:23 Troponin: < normal limit HEART Score: 4 - Critical Actions Critical Actions: 4-6 pts:12-16.6% risk of adverse cardiac event. Should be admitted Results - Labs CBC & Chem 7: 11/10/19 02:51 11/10/19 02:51 Labs: Laboratory Last Values WBC 9.1 K/mm3 (4.5-11.0) 11/09/19 08:23 RBC 4.50 M/mm3 (3.65-5.03) 11/09/19 08:23 Hgb 12.9 gm/dl (11.8-15.2) 11/09/19 08:23 Hct 39.6 % (35.5-45.6) 11/09/19 08:23 MCV 88 fl (84-94) 11/09/19 08:23 MCH 29 pg (28-32) 11/09/19 08: MCHC 33 % (32-34) 11/09/19 08:23 RDW 15.5 % (13.2-15.2) H 11/09/19 08:23 Plt Count 197 K/mm3 (140-440) 11/09/19 08:23 Lymph % (Auto) 16.9 % (13.4-35.0) 11/09/19 08:23 [place] % (Auto) 6.6 % (0.0-7.3) 11/09/19 08:23 Eos % (Auto) 0.5 % (0.0-4.3) 11/09/19 08:23 Baso % (Auto) 0.4 % (0.0-1.8) 11/09/19 08:23 Lymph # 1.5 K/mm3 (1.2-5.4) 11/09/19 08:23 [place] # 0.6 K/mm3 (0.0-0.8) 11/09/19 08:23 Eos # 0.0 K/mm3 (0.0-0.4) 11/09/19 08:23 Baso # 0.0 K/mm3 (0.0-0.1) 11/09/19 08:23 Seg Neutrophils % 75.6 % (40.0-70.0) H 11/09/19 08:23 Seg Neutrophils # 6.9 K/mm3 (1.8-7.7) 11/09/19 08:23 PT 14.3 Sec. (12.2-14.9) 11/09/19 08:23 INR 1.10 (0.87-1.13) 11/09/19 08:23 APTT 32.4 Sec. (24.2-36.6) 11/09/19 08:23 VBG pH 7.385 (7.320-7.420) 11/09/19 08:23 Sodium 141 mmol/L (137-145) 11/09/19 08:23 Potassium 4.3 mmol/L (3.6-5.0) 11/09/19 08:23 Chloride 107.7 mmol/L (98-107) H 11/09/19 08:23 Carbon Dioxide 23 mmol/L (22-30) 11/09/19 08:23 Anion Gap 15 mmol/L 11/09/19 08:23 BUN 14 mg/dL (9-20) 11/09/19 08:23 Creatinine 1.4 mg/dL (0.8-1.5) 11/09/19 08:23 Estimated GFR > 60 ml/min 11/09/19 08:23 BUN/Creatinine Ratio 10 % 11/09/19 08:23 Glucose 128 mg/dL (75-100) H 11/09/19 08:23 Ketones Quantitative Negative (Negative) 11/09/19 08:23 Calcium 9.2 mg/dL (8.4-10.2) 11/09/19 08:23 Magnesium 2.30 mg/dL (1.7-2.3) 11/09/19 08:23 Total Bilirubin 0.70 mg/dL (0.1-1.2) 11/09/19 08:23 Direct Bilirubin < 0.2 mg/dL (0-0.2) 11/09/19 08:23 Indirect Bilirubin 0.5 mg/dL 11/09/19 08:23 AST 19 units/L (5-40) 11/09/19 08:23 ALT 27 units/L (7-56) 11/09/19 08:23 Alkaline Phosphatase 70 units/L (35-129) 11/09/19 08:23 Total Creatine Kinase 344 units/L (55-170) H 11/09/19 08:23 CK-MB (CK-2) 2.9 ng/mL (0.0-4.0) 11/09/19 08:23 CK-MB (CK-2) Rel Index 0.8 (0-4) 11/09/19 08:23 Troponin T < 0.010 ng/mL (0.00-0.029) 11/09/19 08:23 NT-Pro-B Natriuret Pep 1183 pg/mL (0-900) H 11/09/19 08:23 Total Protein 6.7 g/dL (6.3-8.2) 11/09/19 08:23 Albumin 4.1 g/dL (3.9-5) 11/09/19 08:23 Albumin/Globulin Ratio 1.6 % 11/09/19 08:23 Urine Color Yellow (Yellow) 11/09/19 07:59 Urine Turbidity Clear (Clear) 11/09/19 07:59 Urine pH 6.0 (5.0-7.0) 11/09/19 07:59 Ur Specific [place] 1.015 (1.003-1.030) 11/09/19 07:59 Urine Protein <15 mg/dl mg/dL (Negative) 11/09/19 07:59 Urine Glucose (UA) Neg mg/dL (Negative) 11/09/19 07:59 Urine Ketones Neg mg/dL (Negative) 11/09/19 07:59 Urine Blood Neg (Negative) 11/09/19 07:59 Urine Nitrite Neg (Negative) 11/09/19 07:59 Urine Bilirubin Neg (Negative) 11/09/19 07:59 Urine Urobilinogen < 2.0 mg/dL (<2.0) 11/09/19 07:59 Ur Leukocyte Esterase Tr (Negative) 11/09/19 07:59 Urine WBC (Auto) 2.0 /HPF (0.0-6.0) 11/09/19 07:59 Urine RBC (Auto) 1.0 /HPF (0.0-6.0) 11/09/19 07:59 U Epithel Cells (Auto) 1.0 /HPF (0-13.0) 11/09/19 07:59 [place]/IV: IV Catheter Type [Left INT / Saline Lock Antecubital] Assessment and Plan Assessment and plan: Patient is a 59-year-old male with past medical history of hypertension, NIDDM, p. Afib not on Eliquis, GERD and CHF (01/16/17 2D ECHO reported est EF 50-55%, mild concentric LVH, moderate MR, mild TR, normal diastolic filling) recurrent abdominal pain last seen here a few weeks ago for abdominal pain at that time discharged to follow-up with primary care physician which he unfortunately did not. He presents today with abdominal pain which is similar to the one from last 2 weeks and also intermittent cramps with some orthopnea. At first he stated that he feels his stomach is large and presses on his chest when he tries to lay down flat and he gets short of breath. 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 He does have severe left atrium dilatation noted on echocardiogram with a preserved EF of 50 to 55%. He denies any nausea vomiting or diarrhea denies any fever or chills or GI bleed at this time. EKG: Afib Cxr: basilar pulmonary congestion, chf We will admit patient to manage for the following issues -Atypical chest pain/abdominal pain could be possible to underlying coronary artery disease nevertheless: Cardiology and GI consult. Chest pain protocol. PPI as patient has chronic abdominal discomfort. -HTN: restart Losartan, educational guidance counselor on compliance, cardiac diet -AfIb: consulted Cardiology -Acute on chronic HFpEF, appears stable, although reports orthopnea -NSVT, 4 short beat run, asymptomatic evaluated by Cardiology, increase lopressor -P. Atrial fibrillation-->Lone atrial fibrillation, will start on Coumadin due to persistent atrial fibrillation -NIDDM: add ssi, ada, a1c 6.8, educational guidance counselor on compliance -CKD 3 -DVT prophylaxis: Heparin for now we will switch to Coumadin Extensive discussion had with the patient about compliance. Patient also discussed with artillery maintenance supervisor plan for stress test in a.m. Advance Directives: Yes Plan of care discussed with patient/family: Yes
[2019-11-09] MEDS ORDERED: ALBUTEROL 2.5 MG/3 ML NEBU IH PRN (11:03)
[2019-11-09] MEDS ORDERED: ONDANSETRON 4 MG/2 ML INJ IV PRN (11:03)
[2019-11-09] MEDS ORDERED: NITROGLYCERIN 0.4 MG TAB SUBL SL PRN (11:03)
[2019-11-09] MEDS ORDERED: ACETAMINOPHEN 325 MG TAB PO PRN (11:03)
[2019-11-09] MEDS ORDERED: MORPHINE 2 MG/1 ML INJ IV PRN (11:03)
--- NOTE | 2019-11-09 12:01 | XRay Report ---
ABDOMEN 1 VIEW(S) INDICATION / CLINICAL INFORMATION: abdominal pain. COMPARISON: None available. FINDINGS: TUBES / LINES: None. BOWEL GAS PATTERN: No significant abnormality. FREE AIR / EXTRALUMINAL GAS: None seen. ADDITIONAL FINDINGS: No significant additional findings. IMPRESSION: 1. No significant abnormality. Signer Name: Javier Downey MD Signed: 11/09/2019 11:57 AM Workstation Name: [id number]
--- NOTE | 2019-11-09 14:33 | Consultation ---
History of Present Illness Consult date: 11/09/19 Requesting physician: GEORGINA GARCIA Consult reason: congestive heart failure History of present illness: 59-year-old male with history of diabetes hypertension hyperlipidemia 2017 had atrial flutter. Looks like on EKG atrial fibrillation with controlled rate patient states have any irregular heart rhythm. Unclear reason why is not on oral anticoagulation. Patient 3 weeks ago came to the emergency room's abdominal pain was sent home with proton pump inhibitor but did not feel better. Came back for worsening shortness of breath received IV Lasix feeling better. Patient denies any chest pain. But just more abdominal discomfort. Mild nausea no vomiting. Sleeps on his side denies any PND. Denies any palpitations. Or syncope. Past History Past Medical History: atrial fib, diabetes, hypertension Past Surgical History: No surgical history Social history: no significant social history Family history: no significant family history Medications and Allergies Allergies Allergy/AdvReac Type Severity Reaction Status Date / Time No Known Allergies Allergy Verified 10/22/19 22:08 Home Medications Medication Instructions Recorded Confirmed Last Taken Type Albuterol INH(or & Nicu Only) 2 puff IH QID PRN #1 unit 12/28/17 Unknown Rx [ProAir HFA Inhaler] Amoxicillin/Potassium Clav 1 each PO BID #10 tablet 12/28/17 Unknown Rx [Augmentin 875-125 Tablet] Losartan [Cozaar] 100 mg PO QDAY #30 tablet 12/28/17 Unknown Rx Metoprolol [Lopressor] 100 mg PO BID #60 tablet 12/28/17 Unknown Rx glipiZIDE XL [Glucotrol Xl] 5 mg PO QAM #30 tab.er.24 12/28/17 Unknown Rx guaiFENesin [Robitussin] 200 mg PO Q4H PRN #30 oral.liqd 12/28/17 Unknown Rx Furosemide [Lasix] 20 mg PO QDAY #5 tablet 01/05/18 Unknown Rx Albuterol INH(or & Nicu Only) 2 puff IH QID PRN #1 inhalation 01/07/18 Unknown Rx [ProAir HFA Inhaler] Omeprazole 20 mg PO QDAY #30 capsule. 10/22/19 Unknown Rx Active Meds: Active Medications Acetaminophen (Tylenol) 650 mg PO Q4H PRN PRN Reason: Pain MILD(1-3)/Fever >100.5/SWARTZ Albuterol (Proventil) 2.5 mg IH Q4HRT PRN PRN Reason: Shortness Of Breath Furosemide (Lasix) 40 mg IV 0600,1800 [facility] Glipizide (Glucotrol Xl) 5 mg PO QAM [facility] Heparin Sodium (Porcine) (Heparin) 5,000 unit SUB-Q Q8HR [facility] Metoprolol Tartrate (Metoprolol) 100 mg PO BID [facility] Miscellaneous Medication (Losartan [Cozaar]) 100 mg PO QDAY [facility] Miscellaneous Medication (Omeprazole [Omeprazole]) 20 mg PO QDAY [facility] Morphine Sulfate (Morphine) 2 mg IV Q5MIN PRN PRN Reason: Chest Pain unrelieved by NTG Nitroglycerin (Nitrostat) 0.4 mg SL .Q5MIN PRN PRN Reason: Chest Pain Ondansetron HCl (Zofran) 4 mg IV Q8H PRN PRN Reason: Nausea And Vomiting Sodium Chloride (Sodium Chloride Flush Syringe 10 Ml) 10 ml IV BID [facility] Sodium Chloride (Sodium Chloride Flush Syringe 10 Ml) 10 ml IV PRN PRN PRN Reason: LINE FLUSH Warfarin Sodium (Coumadin) 5 mg PO DAILY@1700 [facility]; Protocol Review of Systems All systems: negative (as per hpi) Physical Examination Vital Signs Temp Pulse Resp BP Pulse Ox 97.8 F 87 18 168/108 96 11/09/19 07:42 11/09/19 07:42 11/09/19 07:42 11/09/19 07:42 11/09/19 07:42 General appearance: no acute distress, well-nourished HEENT: Positive: PERRL, Mucus Membranes Moist Neck: Positive: neck supple, trachea midline Cardiac: Positive: Irregularly Regular, S1/S2. Negative: Audible Murmur Lungs: Positive: clear to auscultation, Normal Breath Sounds Neuro: Positive: Grossly Intact Abdomen: Positive: Soft, Active Bowel Sounds. Negative: Tender, Distended Male genitourinary: Positive: normal Skin: Positive: Clear Incision: Cardiac Cath Site Musculoskeletal: No Pain, Normal Range of Motion Extremities: Present: normal. Absent: edema Results 11/09/19 08:23 11/09/19 08:23 Cardiac Enzymes 11/09/19 Range/Units 08:23 AST 19 (5-40) units/L CK-MB (CK-2) 2.9 (0.0-4.0) ng/mL Coagulation 11/09/19 Range/Units 08:23 PT 14.3 (12.2-14.9) Sec. INR 1.10 (0.87-1.13) APTT 32.4 (24.2-36.6) Sec. CBC 11/09/19 Range/Units 08:23 WBC 9.1 (4.5-11.0) K/mm3 RBC 4.50 (3.65-5.03) M/mm3 Hgb 12.9 (11.8-15.2) gm/dl Hct 39.6 (35.5-45.6) % Plt Count 197 (140-440) K/mm3 Lymph # 1.5 (1.2-5.4) K/mm3 [place] # 0.6 (0.0-0.8) K/mm3 Eos # 0.0 (0.0-0.4) K/mm3 Baso # 0.0 (0.0-0.1) K/mm3 Comprehensive Metabolic Panel 11/09/19 11/09/19 Range/Units 08:23 08:23 Sodium 141 (137-145) mmol/L Potassium 4.3 (3.6-5.0) mmol/L Chloride 107.7 H (98-107) mmol/L Carbon Dioxide 23 (22-30) mmol/L BUN 14 (9-20) mg/dL Creatinine 1.4 (0.8-1.5) mg/dL Glucose 128 H (75-100) mg/dL Calcium 9.2 (8.4-10.2) mg/dL Direct Bilirubin < 0.2 (0-0.2) mg/dL Indirect Bilirubin 0.5 mg/dL AST 19 (5-40) units/L ALT 27 (7-56) units/L Alkaline Phosphatase 70 (35-129) units/L Total Protein 6.7 (6.3-8.2) g/dL Albumin 4.1 (3.9-5) g/dL - Imaging and Cardiology Echo: report reviewed (2017 normal LV function with moderate left atrial enlar gement diastolic function) EKG interpretations - Telemetry EKG Rhythm: Atrial Fibrillation (Atrial fibrillation nonspecific ST-T's) Assessment and Plan Restart patient's home dose of losartan and Lopressor in view of patient's insurance status will start patient on Coumadin patient will have an echocardiog cynthia and a Lexiscan nuclear stress test for shortness of breath continue IV diuretics and change to oral in the a.m. - Patient Problems (1) Hypertension Current Visit: Yes Status: Chronic Qualifiers: Hypertension type: essential hypertension Qualified Code(s): I10 - Essential (primary) hypertension (2) Hyperlipemia, mixed Current Visit: Yes Status: Chronic (3) (HFpEF) heart failure with preserved ejection fraction Current Visit: No Status: Acute Qualifiers: Heart failure chronicity: acute Qualified Code(s): I50.31 - Acute diastolic (congestive) heart failure (4) Atrial fibrillation, new onset Current Visit: No Status: Chronic (5) CHF exacerbation Current Visit: No Status: Acute Qualifiers: Heart failure type: diastolic Qualified Code(s): I50.33 - Acute on chronic diastolic (congestive) heart failure (6) SOB (shortness of breath) Current Visit: No Status: Acute (7) Diabetes mellitus Current Visit: No Status: Chronic Qualifiers: Diabetes mellitus type: type 2 Diabetes mellitus residential insulin use: without tank terminal gauger use Diabetes mellitus complication status: without complication Qualified Code(s): E11.9 - Type 2 diabetes mellitus without complications
[2019-11-09 16:54] LABS: Chol/HDL Ratio 3.4 %
[2019-11-09] MEDS ORDERED: WARFARIN 7.5 MG TAB PO SCH (17:00)
[2019-11-09] MEDS ORDERED: HEPARIN 5,000 UNIT/1 ML VIAL ONE ×2 (17:59→22:35)
[2019-11-09] MEDS ORDERED: FUROSEMIDE 40 MG/4 ML INJ ONE (17:59)
[2019-11-09] MEDS: FUROSEMIDE 40 MG/4 ML INJ IV SCH (18:04)
[2019-11-09] MEDS: HEPARIN 5,000 UNIT/1 ML VIAL SUB-Q SCH (18:04)
[2019-11-09] MEDS ORDERED: carvediloL 3.125 MG TAB PO SCH (22:00)
[2019-11-09] MEDS: METOPROLOL TARTRATE 100 MG TAB PO SCH (23:03)
[2019-11-10] MEDS: HEPARIN 5,000 UNIT/1 ML VIAL SUB-Q SCH ×2 (00:42→06:33)
[2019-11-10 04:00] LABS: Basophils % (Auto) 0.4 % (0.0-1.8); Eosinophils # (Auto) 0.1 K/mm3 (0.0-0.4); Eosinophils % (Auto) 0.9 % (0.0-4.3); Hematocrit 43.3 % (35.5-45.6); Hemoglobin 14.1 gm/dl (11.8-15.2); Lymphocytes # (Auto) 1.9 K/mm3 (1.2-5.4); Lymphocytes % (Auto) 20.3 % (13.4-35.0); Mean Corpuscular HGB Conc 33 % (32-34); Mean Corpuscular Volume 87 fl (84-94); Monocytes # (Auto) 0.5 K/mm3 (0.0-0.8); Monocytes % (Auto) 5.7 % (0.0-7.3); Platelet Count 223 K/mm3 (140-440); Red Blood Count 4.95 M/mm3 (3.65-5.03); Red Cell Distribution Width 15.6 % (13.2-15.2)
[2019-11-10 04:06] LABS: INR 1.12 (0.87-1.13)
[2019-11-10 04:13] LABS: Calcium 9.1 mg/dL (8.4-10.2)
[2019-11-10] MEDS ORDERED: FUROSEMIDE 20 MG/2 ML INJ ONE (06:32)
[2019-11-10] MEDS ORDERED: HEPARIN 5,000 UNIT/1 ML VIAL ONE (06:32)
[2019-11-10] MEDS: FUROSEMIDE 40 MG/4 ML INJ IV SCH (06:33)
[2019-11-10] MEDS ORDERED: REGADENOSON 0.4 MG/5 ML INJ IV ONE ×2 (07:04→08:00)
[2019-11-10] MEDS ORDERED: glipiZIDE XL 5 MG TAB PO SCH (08:00)
--- NOTE | 2019-11-10 09:52 | Discharge Summary ---
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 Afib not on Eliquis, GERD and CHF (01/16/17 2D ECHO reported est EF 50-55%, mild concentric LVH, moderate MR, mild TR, normal diastolic filling) recurrent abdominal pain last seen here a few weeks ago for abdominal pain at that time discharged to follow-up with primary care physician which he unfortunately did not. He presents today with abdominal pain which is similar to the one from last 2 weeks and also intermittent cramps with some orthopnea. At first he stated that he feels his stomach is large and presses on his chest when he tries to lay down flat and he gets short of breath. On review of his records the patient has not had any follow-up with his ssas developer his chads 2 score was noted at 1 last time and he was not placed on any further anticoagulation at that time. He does have severe left atrium dilatation noted on echocardiogram with a preserved EF of 50 to 55%. He denies any nausea vomiting or diarrhea denies any fever or chills or GI bleed at this time. EKG: Afib Cxr: basilar pulmonary congestion, chf Cardiology evaluated the patient and has recommended s/p lexiscan MPI stress test today which was negative. tte reviewed - EF 50-55%, mild LVH, restrictive diastolic filling, LA mod dilated, mild to mod MR. Currently stable cardiac status. Convert IV lasix to PO lasix. Cont lopressor, losartan and coumadin with tx INR 2-3. Pt may discharge from cardiology standpoint. At discharge, recommend full dosage lovenox 100mg BID x 7 days in addition to PO coumadin as INR is subtherapeutic. Follow up in our [place] office for INR check on 11/18/2019 @ 1:00PM. Follow up in our office for telemedicine visit with Dr. Boudreaux on 11/20/2019 @ 2:00PM. Patient was clinically stable for discharge counseling on review of records discussed. -Atypical chest pain/abdominal pain could be possible to underlying coronary artery disease nevertheless: -HTN: restart Losartan, employee counselor on compliance, cardiac diet -AfIb: consulted Cardiology -Acute on chronic HFpEF, appears stable, although reports orthopnea -NSVT, 4 short beat run, asymptomatic evaluated by Cardiology, increase lopressor -P. Atrial fibrillation-->Lone atrial fibrillation, will start on Coumadin due to persistent atrial fibrillation -NIDDM: add ssi, ada, a1c 6.8, employee counselor on compliance -CKD 3 -DVT prophylaxis: Heparin for now we will switch to Coumadin Disposition: DC-01 TO HOME OR SELFCARE Time spent for discharge: 35 minutes Core Measure Documentation - Palliative Care Palliative Care/ Comfort Measures: Not Applicable - Core Measures Any of the following diagnoses?: none Exam - Physical Exam Narrative exam: VITAL SIGNS: Reviewed. GENERAL: The patient appears normally developed, Vital signs as documented. HEAD: No signs of head trauma. EYES: Pupils are equal. Extraocular motions intact. EARS: Hearing grossly intact. MOUTH: Oropharynx is normal. NECK: No adenopathy, no JVD. CHEST: Chest with clear breath sounds bilaterally. No wheezes, rales, or rh onchi. CARDIAC: Irregularly irregular rate and rhythm. S1 and S2, without murmurs, gallops, or rubs. VASCULAR: No Edema. Peripheral pulses normal and equal in all extremities. ABDOMEN: Soft, non tender and non distended. No rebound or guarding, and no masses palpated. Bowel Sounds normal. MUSCULOSKELETAL: Good range of motion of all major joints. Extremities without clubbing, cyanosis or edema. NEUROLOGIC EXAM: Alert and oriented x 3 No focal sensory or strength deficits. Speech normal. Follows commands. PSYCHIATRIC: Mood normal. SKIN: detial exam as documented in skin assessment - Constitutional Vitals: Temp Pulse Resp BP Pulse Ox 97.2 F L 67 23 88/69 97 11/10/19 00:00 11/10/19 05:31 11/10/19 05:31 11/10/19 05:31 11/10/19 05:31 Plan Additional Instructions: Must check INR in 2-3 days at doctors office Follow up with: PROSPER STRAUSS MD [Primary Care Provider] - 3-5 Days ZACK JEONG MD [Staff Physician] - 7 Days [facility] [Provider Group] - 7 Days Forms: Warfarin Discharge Instruction Prescriptions: Warfarin [Coumadin] 7.5 mg PO DAILY@1700 #30 tablet Enoxaparin 100 mg SUB-Q Q12HR #14 syringe Furosemide [Lasix TAB] 20 mg PO QDAY #30 tablet
[2019-11-10] MEDS ORDERED: LOSARTAN 50 MG TAB PO SCH (10:00)
[2019-11-10] MEDS ORDERED: PANTOPRAZOLE 20 MG TAB PO SCH (10:00)
--- NOTE | 2019-11-10 11:00 | Progress Note ---
Assessment and Plan s/p lexiscan MPI stress test today which was negative. tte reviewed - EF 50-55%, mild LVH, restrictive diastolic filling, LA mod dilated, mild to mod MR. Currently stable cardiac status. Convert IV lasix to PO lasix. Cont lopressor, losartan and coumadin with tx INR 2-3. Pt may discharge from cardiology standpoint. At discharge, recommend full dosage lovenox 100mg BID x 7 days in addition to PO coumadin as INR is subtherapeutic. Follow up in our [place] office for INR check on 11/18/2019 @ 1:00PM. Follow up in our office for telemedicine visit with Dr. Boudreaux on 11/20/2019 @ 2:00PM. The patient has been seen in conjunction with Dr. Haylee Justin who agrees with the assessment and plan of care. - Patient Problems (1) Hypertension Current Visit: Yes Status: Chronic Qualifiers: Hypertension type: essential hypertension Qualified Code(s): I10 - Essential (primary) hypertension (2) Hyperlipemia, mixed Current Visit: Yes Status: Chronic (3) (HFpEF) heart failure with preserved ejection fraction Current Visit: No Status: Acute Qualifiers: Heart failure chronicity: acute Qualified Code(s): I50.31 - Acute diastolic (congestive) heart failure (4) Paroxysmal atrial fibrillation Current Visit: No Status: Chronic (5) Diabetes mellitus Current Visit: No Status: Chronic Qualifiers: Diabetes mellitus type: type 2 Diabetes mellitus intermediate insulin use: without remote computer terminal operator use Diabetes mellitus complication status: without complication Qualified Code(s): E11.9 - Type 2 diabetes mellitus without complications Subjective Date of service: 11/10/19 Principal diagnosis: sob Interval history: pt for stress test, no current complaints. in AFib with CVR. Objective Last Vital Signs Temp 97.2 F L 11/10/19 00:00 Pulse 77 11/10/19 12:29 Resp 20 11/10/19 12:29 BP 148/100 11/10/19 12:29 Pulse Ox 96 11/10/19 12:29 - Physical Examination General: No Apparent Distress HEENT: Positive: PERRL, Mucus Membranes Moist Neck: Positive: neck supple, trachea midline Cardiac: Positive: irregularly irregular, S1/S2 Lungs: Positive: Decreased Breath Sounds Neuro: Positive: Grossly Intact Abdomen: Positive: Soft, Active Bowel Sounds. Negative: Tender, Distended Skin: Positive: Clear Incision: Cardiac Cath Site Musculoskeletal: No Pain, Normal Range of Motion Extremities: Present: normal. Absent: edema - Labs and Meds Coagulation 11/10/19 Range/Units 03:10 PT 14.5 (12.2-14.9) Sec. INR 1.12 (0.87-1.13) Lipids 11/09/19 Range/Units 15:20 Triglycerides 63 (2-149) mg/dL Cholesterol 170 (50-199) mg/dL HDL Cholesterol 50 (40-59) mg/dL Cholesterol/HDL Ratio 3.40 % CBC 11/10/19 Range/Units 02:51 WBC 9.3 (4.5-11.0) K/mm3 RBC 4.95 (3.65-5.03) M/mm3 Hgb 14.1 (11.8-15.2) gm/dl Hct 43.3 (35.5-45.6) % Plt Count 223 (140-440) K/mm3 Lymph # 1.9 (1.2-5.4) K/mm3 [place] # 0.5 (0.0-0.8) K/mm3 Eos # 0.1 (0.0-0.4) K/mm3 Baso # 0.0 (0.0-0.1) K/mm3 Comprehensive Metabolic Panel 11/10/19 Range/Units 02:51 Sodium 141 (137-145) mmol/L Potassium 4.1 (3.6-5.0) mmol/L Chloride 102.2 (98-107) mmol/L Carbon Dioxide 24 (22-30) mmol/L BUN 18 (9-20) mg/dL Creatinine 1.6 H (0.8-1.5) mg/dL Glucose 139 H (75-100) mg/dL Calcium 9.1 (8.4-10.2) mg/dL - Imaging and Cardiology Echo: report reviewed (2017 normal LV function with moderate left atrial enlargement diastolic function) - Telemetry EKG Rhythm: Atrial Fibrillation
[2019-11-10] MEDS ORDERED: PANTOPRAZOLE 20 MG TAB PO ONE (11:36)
[2019-11-10] MEDS ORDERED: METOPROLOL SUCCINATE XL 100 MG TAB PO ONE (11:37)
[2019-11-10] MEDS ORDERED: LOSARTAN 50 MG TAB ONE (11:37)
[2019-11-10] MEDS: METOPROLOL TARTRATE 100 MG TAB PO SCH (12:27)
--- NOTE | 2019-11-10 12:57 | Treadmill Report ---
NUCLEAR PERFUSION SCAN REFERRING PHYSICIAN: Dr. Yañez. PROTOCOL: The patient was brought to the stress lab in a postoperative state, given 10 mCi of technetium 99m at rest. The patient underwent rest imaging. The patient underwent Lexiscan stress test. At peak stress, patient was given 26 mCi of technetium 99m. Shortly thereafter, the patient underwent stress imaging. Raw imaging reveals mild GI artifact, no significant motion artifact. SPECT images examined carefully horizontal long axis, vertical long axis, short axis views. Grossly, there is normal mitral uptake of radioisotope in all reported segments. No evidence of significant fixed or reversible perfusion defects suggestive of prior infarction or ischemia. Gated wall motion is not performed due to presence of atrial fibrillation. CONCLUSIONS: Normal myocardial perfusion scan without evidence of active ischemia or prior infarction. JOB# [id number] NATHALIE/JACQUELIN
[2019-11-10] MEDS ORDERED: ENOXAPARIN 100 MG/1 ML INJ SUB-Q ONE (14:10)
[2019-11-10] MEDS ORDERED: ENOXAPARIN 100 MG/1 ML INJ SUB-Q SCH (14:30)
[2019-11-10 14:31] VITALS: BP 122/93
[2019-11-11] MEDS ORDERED: FUROSEMIDE 20 MG TAB PO SCH (10:00)
== END 2019-11-10 16:31 | disposition home or self-care (01) ==
LOC: ED 07:23 → 4A 10:17
PROVIDERS: ADMIT Internal Medicine; ATTEND Internal Medicine
DX: R07.89 Other chest pain (principal); R10.9 Unspecified abdominal pain; I13.0 Hypertensive heart and chronic kidney disease with heart failure and stage 1 through stage 4 chronic kidney disease, or unspecified chronic kidney disease; E11.22 Type 2 diabetes mellitus with diabetic chronic kidney disease; I50.33 Acute on chronic diastolic (congestive) heart failure; N18.3 Chronic kidney disease, stage 3 (moderate); I48.0 Paroxysmal atrial fibrillation; I16.0 Hypertensive urgency; I47.2 Ventricular tachycardia; K21.9 Gastro-esophageal reflux disease without esophagitis; E78.2 Mixed hyperlipidemia; Z79.84 Long term (current) use of oral hypoglycemic drugs; Z79.899 Other long term (current) drug therapy
CPT/HCPCS: 36415; 71046; 74018; 78452; 80048; 80061; 80076; 81001; 82010; 82550; 82553; 82805; 83735; 83880; 84484; 85025; 85610; 85730; 93005; 93017; 93306; 96372; 96374; 96376; 99285; A9502; G0378; J1644; J1650; J1940; J2785

== ENCOUNTER 2019-12-06 22:41 | Emergency (ER) | payer SELFPAY ==
[2019-12-07 00:12] LABS: Calcium 9.1 mg/dL (8.4-10.2)
[2019-12-07 00:16] LABS: Basophils % (Auto) 0.2 % (0.0-1.8); Eosinophils % (Auto) 0.3 % (0.0-4.3); Hematocrit 37.4 % (35.5-45.6); Hemoglobin 12.5 gm/dl (11.8-15.2); Lymphocytes # (Auto) 1.2 K/mm3 (1.2-5.4); Lymphocytes % (Auto) 13.3 % (13.4-35.0); Mean Corpuscular HGB Conc 33 % (32-34); Mean Corpuscular Volume 88 fl (84-94); Monocytes # (Auto) 0.4 K/mm3 (0.0-0.8); Monocytes % (Auto) 4.4 % (0.0-7.3); Platelet Count 185 K/mm3 (140-440); Red Blood Count 4.26 M/mm3 (3.65-5.03); Red Cell Distribution Width 15.4 % (13.2-15.2)
--- NOTE | 2019-12-07 01:00 | Emergency Department Report ---
ED Abdominal Pain HPI - General Chief Complaint: Abdominal Pain Stated Complaint: ABD PAIN Time Seen by Provider: 12/07/19 00:35 Source: patient Mode of arrival: Ambulatory Limitations: No Limitations - History of Present Illness Initial Comments: 59-year-old male presents to ED with right upper quadrant pain since yesterday. Patient denies any nausea, vomiting, diarrhea, fever. Patient reports tonight when he attempted to lie down, he became short of breath. Patient is currently laying supine on the stretcher and denies feeling dyspneic. Reports his abdominal pain has resolved. MD Complaint: abdominal pain -: Last night Location: RUQ Radiation: none Migration to: no migration Severity: moderate Quality: aching Consistency: now resolved Improves With: nothing Worsens With: nothing Associated Symptoms: denies: nausea, vomiting, diarrhea, fever - Related Data Previous Rx's Medication Instructions Recorded Last Taken Type Losartan [Cozaar] 100 mg PO QDAY #30 tablet 12/28/17 Unknown Rx Metoprolol [Lopressor TAB] 100 mg PO BID #60 tablet 12/28/17 Unknown Rx glipiZIDE XL [Glucotrol Xl] 5 mg PO QAM #30 tab.er.24 12/28/17 Unknown Rx Omeprazole 20 mg PO QDAY #30 capsule. 10/22/19 Unknown Rx Enoxaparin 100 mg SUB-Q Q12HR #14 syringe 11/10/19 Unknown Rx Furosemide [Lasix TAB] 20 mg PO QDAY #30 tablet 11/10/19 Unknown Rx Warfarin [Coumadin] 7.5 mg PO DAILY@1700 #30 tablet 11/10/19 Unknown Rx Dicyclomine [Bentyl] 20 mg PO QID PRN #20 tablet 12/07/19 Unknown Rx Allergies Allergy/AdvReac Type Severity Reaction Status Date / Time No Known Allergies Allergy Verified 10/22/19 22:08 ED Review of Systems ROS: Stated complaint: ABD PAIN Other details as noted in HPI Comment: All other systems reviewed and negative Constitutional: denies: chills, fever Respiratory: shortness of breath. denies: cough Cardiovascular: denies: chest pain Gastrointestinal: abdominal pain. denies: nausea, vomiting, diarrhea ED Past Medical Hx - Past Medical History Previous Medical History?: Yes Hx Hypertension: Yes Hx Congestive Heart Failure: Yes Hx Diabetes: Yes Hx Asthma: No Hx COPD: No Hx HIV: No Additional medical history: A-fib - Surgical History Past Surgical History?: No - Social History Smoking Status: Never Smoker Substance Use Type: None - Medications Home Medications: Home Medications Medication Instructions Recorded Confirmed Last Taken Type Losartan [Cozaar] 100 mg PO QDAY #30 tablet 12/28/17 11/09/19 Unknown Rx Metoprolol [Lopressor TAB] 100 mg PO BID #60 tablet 12/28/17 11/09/19 Unknown Rx glipiZIDE XL [Glucotrol Xl] 5 mg PO QAM #30 tab.er.24 12/28/17 11/09/19 Unknown Rx Omeprazole 20 mg PO QDAY #30 capsule.dr 10/22/19 11/09/19 Unknown Rx Enoxaparin 100 mg SUB-Q Q12HR #14 syringe 11/10/19 Unknown Rx Furosemide [Lasix TAB] 20 mg PO QDAY #30 tablet 11/10/19 Unknown Rx Warfarin [Coumadin] 7.5 mg PO DAILY@1700 #30 tablet 11/10/19 Unknown Rx Dicyclomine [Bentyl] 20 mg PO QID PRN #20 tablet 12/07/19 Unknown Rx ED Physical Exam - General Limitations: No Limitations General appearance: alert, in no apparent distress - Head Head exam: Present: atraumatic, normocephalic - Eye Eye exam: Present: normal appearance, EOMI - ENT ENT exam: Present: mucous membranes moist - Neck Neck exam: Present: normal inspection - Respiratory Respiratory exam: Present: normal lung sounds bilaterally. Absent: respiratory distress - Cardiovascular Cardiovascular Exam: Present: regular rate, normal rhythm - GI/Abdominal GI/Abdominal exam: Present: soft. Absent: distended, tenderness - Extremities Exam Extremities exam: Present: normal inspection - Neurological Exam Neurological exam: Present: alert, oriented X3 - Psychiatric Psychiatric exam: Present: normal affect, normal mood - Skin Skin exam: Present: warm, dry, intact, normal color ED Course Vital Signs 12/06/19 12/07/19 12/07/19 23:00 00:40 01:59 Temperature 98.5 F Pulse Rate 85 82 Respiratory 18 18 16 Rate Blood Pressure 150/101 Blood Pressure 147/99 [Left] O2 Sat by Pulse 96 96 97 Oximetry ED Medical Decision Making - Lab Data Result diagrams: 12/06/19 23:23 06/13/20 23:23 - Radiology Data Radiology results: report reviewed, image reviewed - Medical Decision Making - US, CXR unremarkable - symptoms resolved - vitals stable - outpt f/u advised, return precautions given - Differential Diagnosis gallstones, CHF, pneumonia Critical care attestation.: If time is entered above; I have spent that time in minutes in the direct care of this critically ill patient, excluding procedure time. ED Disposition Clinical Impression: Abdominal pain, right upper quadrant Disposition: - TO HOME OR SELFCARE Is pt being admited?: No Condition: Stable Instructions: Abdominal Pain (ED) Prescriptions: Dicyclomine [Bentyl] 20 mg PO QID PRN #20 tablet PRN Reason: abdominal pain Referrals: MARLON BAZAN MD [Primary Care Provider] - 3-5 Days Time of Disposition: 02:12
[2019-12-07 01:02] LABS: Bacteria,Urine 1+ /HPF (Negative)
[2019-12-07 01:15] LABS: Bilirubin,Urine NEG (Negative); Blood,Urine NEG (Negative); Color,Urine Yellow (Yellow); Protein,Urine <15 mg/dL mg/dL (Negative)
--- NOTE | 2019-12-07 01:15 | XRay Report ---
CHEST 2 VIEWS INDICATION / CLINICAL INFORMATION: sob. COMPARISON: Chest x-ray 11/09/2019 FINDINGS: SUPPORT DEVICES: None. HEART / MEDIASTINUM: Moderate cardiomegaly with mild pulmonary venous hypertension LUNGS / PLEURA: No significant pulmonary or pleural abnormality. No pneumothorax. ADDITIONAL FINDINGS: No significant additional findings. IMPRESSION: 1. Cardiomegaly with mild pulmonary venous hypertension. Signer Name: Girma Navarro MD Signed: 12/07/2019 1:10 AM Workstation Name: [facility]
[2019-12-07 02:03] VITALS: BP 147/99
--- NOTE | 2019-12-07 02:12 | Ultrasound Report ---
ULTRASOUND ABDOMEN, LIMITED (RIGHT UPPER QUADRANT) INDICATION: RUQ pain. COMPARISON: None available. FINDINGS: Pancreas: Visualized portion shows no significant abnormality. Liver: Normal. Gallbladder: Normal. Bile ducts: Normal. Common Bile Duct measures 2 mm. Free fluid: None. Additional Findings: None. IMPRESSION: 1. No sonographic abnormality of the right upper quadrant. Signer Name: Girma Navarro MD Signed: 12/07/2019 2:08 AM Workstation Name: [employer]
== END 2019-12-07 02:39 | disposition home or self-care (01) ==
LOC: ED 22:41
DX: R10.11 Right upper quadrant pain (principal)
CPT/HCPCS: 36415; 71046; 76705; 80053; 81001; 83690; 85025